=== PATIENT | female | born 1995 | race Caucasian/White ===

== ENCOUNTER 2017-02-26 01:20 | Emergency (ER) | payer SELFPAY ==
[~2017-02-26] VITALS: Ht 172.7 cm; Wt 113.6 kg
[~2017-02-26 01:20] MED LIST: ALBUTEROL SULF8.5 GM IH; BENADRYL25 MG PO; CEFTIN250 MG PO; FLEXERIL5 MG PO; NAPROSYN250 MG PO; NAPROSYN500 MG PO; NAPROXEN500 MG PO; NO HOME MEDS; NORCO 5/3251 TABLET PO; PEPCID20 MG PO; PREDNISONE50 MG PO; TRAMADOL HCL50 MG PO; ULTRAM50 MG PO
[2017-02-26] MEDS ORDERED: PREDNISONE20 MG PO (02:36)
[2017-02-26] MEDS ORDERED: MOTRIN800 MG PO (02:37)
[2017-02-26] MEDS ORDERED: PEN-VEE K,VEET500 MG PO (02:56)
[2017-02-26 03:18] VITALS: BP 117/77
== END 2017-02-26 03:20 | disposition home or self-care (01) ==
LOC: EME 01:20
DX: J02.0 Streptococcal pharyngitis (principal)
CPT/HCPCS: 87651 90; 99281; 99284; J7512